=== PATIENT | female | born 1945 | race Caucasian/White ===

== ENCOUNTER 2023-07-16 16:10 | Emergency (ER) | payer MEDICARE, SELFPAY ==
--- NOTE | ~2023-07-16 | XR_ITS ---
EXAMINATION: XR knee LT min 4V DATE: 07/16/2023 16:37 INDICATION: Fall. TECHNIQUE: 4 views of left knee were obtained. COMPARISON: None. FINDINGS: Bone alignment is normal. No fracture. There is mild tricompartmental osteoarthritis. No kn ee joint effusion. Prepatellar soft tissue swelling is noted. IMPRESSION: 1. Mild left knee osteoarthritis. Reviewed, dictated and finalized at location E.
[2023-07-16 16:12] VITALS: BP 144/68; PULSE 70; RESP 18; TEMP 36.2; O2SAT 98
--- NOTE | 2023-07-16 17:52 | ED.FALL ---
HPI - Fall General Chief Complaint: Fall Stated Complaint: fall L knee pain Time Seen by Provider: 07/16/23 17:02 Source: patient Mode of arrival: ambulatory Limitations: no limitations History of Present Illness HPI Narrative: This is a 78-year-old female who presents to the ED with chief complaint of a fall occurring just prior to arrival. Patient reports that she was sitting on the back of a truck tailgate when she accidentally fell off. She did not realize the tailgate had rupture on it and this caused her to fall face 1st when she tried to slide off. endorses left knee pain as she was able to break the fall with her left knee, bilateral hands. Denies any significant hand or wrist injury. Denies numbness, weakness. Denies head injury Related Data Allergies Allergy/AdvReac Type Severity Reaction Status Date / Time clindamycin AdvReac Diarrhea Verified 07/16/23 16:15 Review of Systems Review of Systems: All systems as dictated in HPI Exam Narrative: GENERAL: Well-appearing, well-nourished, and in no acute distress. HEAD: Normocephalic, atraumatic. EYES: PERRLA and EOMI. ENT: Nares clear, no rhinorrhea or epistaxis. Mucous membranes moist. Oropharynx without tonsillar hypertrophy exudate or other lesions. NECK: Supple. No adenopathy or masses. CHEST: No respiratory distress. Clear to auscultation. No wheezes rales or rhonchi HEART: Regular rate and rhythm. No murmur heard. Normal peripheral pulses. ABDOMEN: Soft, nontender, nondistended, normal active bowel sounds. MSK: LLE: moderate effusion noted on exam. Minimal bruising. Moderate tenderness throughout the left knee joint. Neurovascularly intact distally. Able to bear weight RLE: Benign SKIN: Warm, dry, no rash. NEURO: Alert and oriented x3. No focal deficits. PSYCH: Normal mood and affect. Course Vital Signs Vital signs: Vital Signs Temperature 97.2 F L 07/16/23 16:12 Pulse Rate 70 07/16/23 16:12 Respiratory Rate 18 07/16/23 16:12 Blood Pressure 144/68 H 07/16/23 16:12 Pulse Oximetry 98 07/16/23 16:12 Oxygen Delivery Room Air 07/16/23 16:12 Temperature 97.2 F L 07/16/23 16:12 Pulse Rate 70 07/16/23 16:12 Respiratory Rate 18 07/16/23 16:12 Blood Pressure 144/68 H 07/16/23 16:12 Pulse Oximetry 98 07/16/23 16:12 Oxygen Delivery Room Air 07/16/23 16:12 MDM - Fall MDM Narrative Medical decision making narrative: this is a 78-year-old female who presents to the ED with chief complaint of left knee injury after falling off truck tailgate. Vitals are normal. Exam shows left knee effusion with moderate tenderness but no deformity. Neurovascularly intact. x-rays of the left knee show mild left knee osteoarthritis. No fracture. Symptoms and presentation are consistent with contusion. Pt will be discharged in stable condition. Return precautions given and supportive measures discussed. Pt is understanding and agreeable with plan for discharge and follow-up with PCP. Discharge Plan Discharge Clinical Impression: Injury of knee, left Patient Disposition: Home, Self-Care Condition: Stable Instructions: Antibiotic Form Additional Instructions: your exam and imaging today are reassuring overall. Please take Tylenol arthritis as needed for pain control every 4-6 hours. Follow-up with your PCP. If you have any new or worsening symptoms please return to the ER for further evaluation. Follow-up/Referrals: PHYSICIAN NOT ON STAFF,NONSTAFF [Non-Staff] - Time of Disposition: 17:55
[2023-07-16 18:10] VITALS: BP 138/87; PULSE 75; RESP 18; O2SAT 98
== END 2023-07-16 18:10 | disposition home or self-care (01) ==
PROVIDERS: Emergency Provider Physician Assistant; PCP Family Medicine
DX: S89.92XA Unspecified injury of left lower leg, initial encounter (principal); W17.89XA Other fall from one level to another, initial encounter
CPT/HCPCS: 73564; 99283